=== PATIENT | male | born 2000 | race Caucasian/White ===

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

== ENCOUNTER → 2023-11-08 09:35 | Outpatient (CLI) | payer OTHER, SELFPAY ==
[2023-11-08 11:21] LABS: Urine N gonorrhoeae NOT DETECTED
[2023-11-08 11:22] LABS: Urine Chlamydia NOT DETECTED
== END ==
PROVIDERS: Family Provider Family Medicine; PCP Family Medicine; Visit Provider Nurse Practitioner Family
DX: R30.0 Dysuria (principal)
CPT/HCPCS: 87086; 87491; 87591